=== PATIENT | male | born 2000 | race Caucasian/White ===

== ENCOUNTER 2023-02-26 08:21 | Emergency (ER) | payer OTHER, SELFPAY ==
[2023-02-26 08:23] VITALS: BP 194/107; PULSE 109; RESP 24; TEMP 36.1; O2SAT 100
--- NOTE | 2023-02-26 08:43 | EX.ED.DYSGE1 ---
HPI History of Present Illness Chief Complaint: Headache Informant: patient Onset/Context/Timing Onset: Days (5) Context: Gradual Onset Timing: Continuous Quality: Pressure Location: Frontal Worsened by: Nothing Relieved by: Ibuprofen Narrative Narrative: Patient presents with headache and dry mouth worse over the last 5 days. Patient states it is gradually getting worse. Patient states his headache is over the frontal area. Patient describes it as a pressure. Patient states it radiates into his neck. Patient states he has been taking ibuprofen which has been helping. Patient states that he did see some flashes of light the other day which made his headache somewhat worse. Patient admits to nausea but denies any vomiting. Patient admits to a sore throat but denies any fevers or chills. Patient denies any visual changes. Patient states he has not been sleeping well over the last few days. Patient also states his left arm feels heavy. Patient states he is concerned that he might have rabies even though he has not been exposed to any animals to carry rabies bitten by any animals recently. [facility] Medical History (Updated 02/26/23 @ 10:[address] Daquan Trujillo DO) Morbid obesity Home Medications NK 02/26/23 [History Last Taken Unknown] Allergy/AdvReac Type Severity Reaction Status Date / Time Penicillins [PCN] Allergy PT UNSURE Verified 02/26/23 08:22 OF REACTION Social History Smoking Status: Light Smoker (<10/day) ROS ROS ED Constitutional Constitutional ED: Denies chills or fever(s) Eyes Eyes: Denies blurry vision or change in vision ENT ENT ED: Denies rhinorrhea or sore throat Cardiovascular Cardiovascular: Denies chest pain or palpitations Respiratory/Chest Respiratory/Chest: Denies cough or dyspnea Gastrointestinal Gastrointestinal: Reports nausea; Denies vomiting Genitourinary Genitourinary ED: Denies dysuria or hematuria Musculoskeletal Musculoskeletal: Reports back pain and neck pain Integumentary Denies abscess or rash Neurologic Neurologic: Reports headache(s); Denies weakness Allergic/Immunologic Allergic/Immunologic ED: Denies mouth swelling or urticaria EXAM Physical Exam Const Vital Signs: 02/26/23 08:23 02/26/23 08:47 02/26/23 10:42 Temperature 96.9 F L Temperature Source Temporal Pulse Rate 109 H 81 Respiratory Rate 24 H 18 Respiratory Effort Normal Respiratory Pattern Normal Blood Pressure 194/107 H Blood Pressure Mean 136 Pulse Ox 100 100 Oxygen Delivery Method Room Air Room Air Positive well nourished, well developed and obese General Appearance ED: well developed and NAD Nutritional Appearance: obese HEENT Reports moist mucous membranes Neck supple and no JVD Resp normal respiratory effort and clear to auscultation bilaterally Cardio regular rate, regular rhythm and no murmurs GI normal to inspection, nondistended, normoactive bowel sounds and non-tender Palpation: soft Extremity normal to inspection General Extremety ED: Negative for edema or tenderness General Extremity: Negative for edema Neuro oriented x3, CN's II-XII intact bilaterally and no sensory deficits noted Sensorium / Orientation: alert Motor Exam: strength 5/5 throughout Psych mental status grossly normal Skin no rashes or lesions noted MDM MDM MDM Narrative Medical decision making narrative: Differential diagnosis includes migraine headache, intracranial bleeding, uncontrolled hypertension, infection, anxiety, and sinusitis. Scan of brain will be obtained to assess for sinusitis and bleeding. CBC will be obtained to assess for leukocytosis and anemia. Basic metabolic profile will be obtained to assess for electrolyte abnormality and renal function. Lab Data Attestation: I reviewed the patient's lab results. Lab results narrative: CBC shows a slight leukocytosis of 13.2. The remainder is within normal limits. Basic metabolic profile was reviewed and was essentially within normal limits. Labs: Laboratory Results - last 24 hr 02/26/23 02/26/23 09:13 09:13 WBC 13.2 H RBC 5.19 Hgb 14.4 Hct 47.0 MCV 90.6 MCH 27.7 MCHC 30.6 L RDW Std Deviation 46.5 H RDW Coeff of [place] 14.0 Plt Count 268 MPV 8.6 Immature Gran % (Auto) 0.800 Neut % (Auto) 63.7 Lymph % (Auto) 24.6 [place] % (Auto) 8.1 Eos % (Auto) 1.6 Baso % (Auto) 1.2 H Absolute Neuts (auto) 8.4 H Absolute Lymphs (auto) 3.26 Nucleated RBC % 0 Sodium 138 Potassium 4.3 Chloride 103 Carbon Dioxide 24.0 Anion Gap 11 BUN 11 Creatinine 0.78 Estim Creat Clear Calc 161.67 Est GFR (MDRD) Af Amer 159 Est GFR (MDRD) Non-Af 131 BUN/Creatinine Ratio 14.2 Glucose 120 H Calcium 9.5 Radiography Diagnostic Testing: Clinical Impression(s) from Imaging Studies Brain CT 02/26/23 08:50 IMPRESSION: Normal unenhanced CT scan of the brain. Electronically Signed: Kvng Nguyen MD at 9:48 EDT , CT scan of the brain was obtained. There is no acute intracranial abnormality. This was interpreted by the radiologist and was also independently reviewed by myself. Treatment and Re-Evaluation :: Patient was given IV fluids, Compazine, and Benadryl. Patient was feeling better on reevaluation. Patient states his headache has resolved. Patient was instructed to drink plenty of fluids. Patient was instructed to continue Tylenol and ibuprofen as needed for any headaches. Patient was instructed to follow-up with his primary care physician in 5 to 7 days for reevaluation. Patient understood and was agreeable with the plan. All questions were answered. Discharge Plan Triage Chief Complaint: Headache Other Complaint: Other, Pain/Inj ED Provider: Daquan Trujillo Dx/Rx/DC Orders Clinical Impression: Headache, Morbid obesity, Anxiety Instructions: ED Headache Unspecified Prescriptions: No Action NK Primary Care Provider: Care Physician,No Primary Referrals: Care Physician,No Primary [Primary Care Provider] - Doctor,Your [Non-Staff] - Keep Patel appointment Disposition Disposition: Home, Self Care Discharge Date/Time: 02/26/23 10:42
[2023-02-26 08:47] VITALS: BMI 81.3
--- NOTE | 2023-02-26 08:50 | CT_ITS ---
STUDY: CT BRAIN WITHOUT CONTRAST REASON FOR EXAM: Male, 22 years old. Headaches and dry mouth. RADIATION DOSAGE (If Supplied By Facility): CTDIvol = ( 44.99 ) mGy, DLP = ( 846.73 ) mGycm TECHNIQUE: Transaxial CT imaging of the brain was performed without administration of intravenous contrast material. Individualized dose optimization techniques were used for this CT. COMPARISON: No relevant priors. FINDINGS: Normal soft tissue structures. Normal calvarium. Normal size ventricles and extra-axial spaces for the patient''s age. Normal white matter tracts of the cerebral hemispheres. Normal basal ganglia and thalami. Normal brainstem. Normal cerebellum. There is no intracranial hemorrhage. There are no findings of an acute ischemic infarction. Normal visualized paranasal sinuses. CT/Brain/Head without Contrast IMPRESSION: Normal unenhanced CT scan of the brain. Electronically Signed: Kvng Nguyen MD at 9:48 EDT ,
[2023-02-26 09:19] LABS: Absolute Lymphocyte Count 3.26 X10^3/uL (0.83-4.51); Absolute Neutrophil Count 8.4 X10^3/uL (2.0-7.7); Basophil# 0.16 X10^3/uL; Basophil% 1.2 % (0-1); Eosinophil# 0.21 X10^3/uL; Eosinophils% 1.6 % (0-5); Hemoglobin 14.4 g/dL (13.0-16.5); Lymphocyte # 3.26 X10^3/ul (0.83-4.51); Lymphocyte % 24.6 % (19-41); Mean Corp Hgb Conc 30.6 g/dL (32-36); Mean Corpuscular Hgb 27.7 pg (27.0-32.0); Mean Corpuscular Volume 90.6 fL (80-94); Mean Platelet Vol. 8.6 fl (6.2-12.0); Monocyte# 1.07 X10^3/uL; Monocyte% 8.1 % (0-10); NRBC Flagged by Analyzer 0 % (0-5); Neutrophil # 8.44 X10^3/uL (2.7-7.7); Neutrophil % 63.7 % (47-70); Platelet Count 268 K/mm3 (150-450); RBC Distribution Width SD 46.5 fl (35.1-43.9); Red Blood Count 5.19 M/mm3 (4.6-6.2); White Blood Count 13.2 K/mm3 (4.4-11.0)
[2023-02-26] MEDS: DiphenhydrAMINE 50 MG/ML Syringe 25 MG IV (09:21)
[2023-02-26] MEDS: 0.9% Normal Saline 1,000 ML 999 ML IV (09:21)
[2023-02-26] MEDS: proCHLORPERazine 10 MG/2 ML Vial IV (09:21)
[2023-02-26 09:35] LABS: Anion Gap 11 (5-15); BUN 11 mg/dL (7-18); BUN/Creat Ratio 14.2 RATIO (10-20); Calcium,Total 9.5 mg/dL (8.5-10.1); Chloride 103 mmol/L (98-107); Creatinine, Serum 0.78 mg/dL (0.70-1.30); EST Glomerular Filtration Rate 131 mL/min (>60); Est Glom Filt Rate - Afr Amer 159 mL/min (>60); Estimated Creatinine Clearance 161.67 ml/min; Glucose 120 mg/dL (74-106); Potassium 4.3 mmol/L (3.5-5.1); Sodium Level 138 mmol/L (136-145)
[2023-02-26 10:42] VITALS: PULSE 81; RESP 18; O2SAT 100
== END 2023-02-26 10:42 | disposition home or self-care (01) ==
PROVIDERS: Emergency Provider Emergency Medicine; Visit Provider Emergency Medicine
DX: R51.9 Headache, unspecified (principal); E66.01 Morbid (severe) obesity due to excess calories; J02.9 Acute pharyngitis, unspecified; F17.200 Nicotine dependence, unspecified, uncomplicated; F41.9 Anxiety disorder, unspecified
CPT/HCPCS: 70450; 80048; 85025; 96361; 96374; 96375; 99283; A4216